=== PATIENT | male | born 1965 | race African-American/Black ===

== ENCOUNTER 2017-01-18 12:00 | Inpatient (IN) | payer OTHER ==
--- NOTE | ~2017-01-18 | A ---
[facility] Nutrition Therapy DATE: 01/19/17 Patient: REHANA MENDENHALL Physician: JANICE Address: [address] [place] [address] Room/Bed: [address], Zip: [place] [address] Admit Date: 01/18/17 Date of : [birth year] Height: 5 11 Weight: [id number] NUTRITIONAL ASSESSMENT: REASON: UNINTENTIONAL WEIGHT LOSS PATIENT ADMITTED FOR SI/HI AND A/V HALLUCINATIONS PMH: HTN, CIRRHOSIS, HEP C, ASTHMA Anthropometrics: HT: 5'11", WT: 176#, BMI: 24.5 Labs: 01/19/17- NUTRITIONAL LABS WNL Meds: ZOLOFT, LATUDA, NEURONTIN, DESYREL, KLONOPIN Assessment: PATIENT IS A 51 Y/O MALE ADMITTED FOR SI, HI, AND A/V HALLUCINATIONS. PATIENT IS CURRENTLY ON DISABILITY, LIVES ALONE, SMOKES 2-3 PPD, AND DENIES ANY CURRENT SUBSTANCE ABUSE HOWEVER TOX SCREEN WAS POSITIVE FOR BENZOS, MARIJUANA, AND OPIATES. UPON ADMIT PATIENT STATED A FAIR APPETITE WITH NO RECENT WEIGHT LOSS AND HE SLEEPS AN AVERAGE OF 2HRS/NIGHT. WEIGHT HX PER [employer] SHOWS NO SIGNIFICANT WEIGHT CHANGES X 1 YEAR. PATIENT'S BMI IS WITHIN A HEALHTY RANGE. CURRENT PSYCH MEDS MAY CAUSE AN INCREASE IN WEIGHT AND APPETITE. PATIENT DOES HAVE SOME SELF-INFLICTED SCRATCHES TO ARMS, ABDOMEN, AND NECK, WITH NO FURTHER SKIN BREAKDOWN OR GI ISSUES NOTED ATT. PATIENT IS ON A REGULAR DIET AND RECEIVES LARGE PORTION ENTREES. Dx: NO NUTRITION DX Intervention: REGULAR DIET, LARGE PORITONS, MEDS PER MD, PSYCH Monitoring, Evaluation and Goals: 1. ADEQUATE PO INTAKES >50% OF MEALS 2. PREVENT, CORRECT MICRO/MACRO NUTRIENT DEFICIENCIES MONITOR: WEIGHTS, LABS, PO/FLUID INTAKES Recommendations: 1. CONTINUE REGULAR DIET WITH LARGE PORTION ENTREES TOLERATED 2. ENCOURAGE ADEQUATE PO AND FLUID INTAKES RD TO F/U PER PROTOCOL AND PRN R/T PATIENT NOT AT NUTRITIONAL RISK ATT [facility] Nutrition Therapy DATE: 01/19/17 Patient: REHANA MENDENHALL Physician: JANICE Address: [address] [place] [address] Room/Bed: [address], Zip: [place] [address] Admit Date: 01/18/17 Date of : [birth year] Height: 5 11 Weight: [phone] Respectfully, MARIAN BURRELL, JEREMIE, LD [facility] cc: client file
--- NOTE | ~2017-01-18 | HP ---
Unit #: [id number] #: [id number] Patient: REHANA MENDENHALL [id number] [place] [address] [id number] MR#: [id number] NAME: REHANA MENDENHALL ROOM: [facility] Age: 51 Sex: M Admission Date: 01/18/2017 : 1965 Attending Physician: Musa Haskins M.D. Admitting Physician: Musa Haskins M.D. Primary Care Physician: Gillian Tejada M.D. HISTORY AND PHYSICAL HISTORY OF PRESENT ILLNESS Rehana is a 51-year-old male admitted on 01/18/[address] [place] [address] for auditory and visual hallucinations and self-injuring behaviors. PAST MEDICAL HISTORY 1. Hepatitis C which he reports has resolved. 2. Elevated blood pressure. PAST SURGICAL HISTORY 1. Inguinal hernia. 2. Tumor removal when he was a child. 3. Stomach surgery. 4. Right knee replacement. ALLERGIES Codeine. SOCIAL HISTORY Smokes 2 to 3 packs of cigarettes daily. Occasional alcohol use and occasional marijuana use. He is , grieving the of his and currently is living alone. FAMILY HISTORY Noncontributory. REVIEW OF SYSTEMS CONSTITUTIONAL: No fever or chills. HEENT: Denies any sore throat, ear pain or runny nose. CARDIOVASCULAR: Denies chest pain, irregular heart rhythm or palpitations. CHEST: Denies shortness of breath or cough. No hemoptysis. GASTROINTESTINAL: Denies nausea, vomiting, diarrhea or chronic constipation. ENDOCRINE: Denies history of increased thirst or urination. No recent significant weight loss or gain. GENITOURINARY: Denies dysuria, frequency, or hematuria. SKIN: Denies any rashes. HEMATOLOGIC: Denies history of increased bleeding or bruising. MUSCULOSKELETAL: Denies any hot, swollen joints. No generalized muscle pain. NEUROLOGIC: Denies problems with vision or speech. No frequent, severe headaches. No numbness, tingling or weakness in any extremities. Denies loss of bladder or bowel control. Unit #: [id number] #: [id number] Patient: REHANA MENDENHALL CURRENT MEDICATIONS 1. Seroquel. 2. Klonopin. 3. Lortab. PHYSICAL EXAMINATION GENERAL: Alert, oriented, no acute distress. VITAL SIGNS: Blood pressure 143/99, heart rate 100, temperature 98.1, respirations 18. HEIGHT: 5 feet 11. WEIGHT: 176 pounds. SKIN: Warm and dry without rash or lesion. HEENT: Normocephalic. TMs not viewed. Oral and nasal passages clear. Conjunctivae clear. PERRLA. EOMs intact. NECK: Supple without lymphadenopathy or thyromegaly. HEART: Regular rate and rhythm without murmur. LUNGS: Clear. ABDOMEN: Soft, nontender, without masses or hepatosplenomegaly. : Not done. EXTREMITIES: No evidence of cyanosis, clubbing or edema. Moves all without focal deficit. NEUROLOGICAL: Grossly within normal limits. Cranial Nerves: II: Visual mitchell are intact. III, IV AND : Extraocular movements are intact. Pupils are equal, round and reactive to light. V: Facial sensation is grossly normal. VII: Facial movements and expression are normal. VIII: Auditory acuity grossly intact. IX, X: Uvula is midline. Phonation is normal. XI: Patient shrugs shoulders and turns head normally. XII: Tongue protrudes in the midline. Sensory and Motor Function: Sensory and motor sensation is grossly normal. Motor: moves all extremities well. Coordination: Gait is normal. Deep Tendon Reflexes: Intact. IMPRESSION 1. Psychiatric admission. 2. Hepatitis C. 3. Elevated blood pressure. RECOMMENDATIONS PSYCHIATRIC: Per psychiatrist. MEDICAL: No contraindication to participate in facility's activities. MEDICAL PROGNOSIS Good. MEDICAL CONDITION Stable. Dictated by... Amol Olmos/douglas Unit #: [id number] #: [id number] Patient: REHANA MENDENHALL TD: 01/19/2017 16:20 JOB #: [id number] HISTORY AND PHYSICAL Page 1 of 1 X JANAK EDWARDS APRN HISTORY AND PHYSICAL
--- NOTE | ~2017-01-18 | DS ---
Unit #: [id number] #: [id number] Patient: REHANA MENDENHALL [id number] [place] [address] [id number] MR#: [id number] NAME: REHANA MENDENHALL ROOM: [facility] Age: 51 Sex: M Admission Date: 01/18/2017 : 1965 Discharge Date: 01/20/2017 Attending Physician: Musa Haskins M.D. Primary Care Physician: Gillian Tejada M.D. DISCHARGE SUMMARY REASON FOR ADMISSION Rehana is a 51-year-old man with a reported history of schizophrenia, documented history of polysubstance dependence, antisocial personality disorder. He came in the hospital reporting he needed his medications adjustment and had been noncompliant. He was admitted for stabilization . DIAGNOSTIC STUDIES Laboratory data, urine drug screen was positive for benzodiazepines, marijuana, and opiates. CBC and CMP were within normal limits. HOSPITAL COURSE Rehana was admitted and placed on suicide precautions. Seroquel was changed to Latuda 40 mg at bedtime for mood stability and Zoloft, clonazepam and other medications from his outpatient provider were controlled unchanged. The patient was somewhat irritable and demanding throughout the hospitalization, demanding special foods, favors, and attention from the staff. He demanded discharge during the weekend when I was having coverage by another practitioner, and he was felt to be able to give a reliable contract for safety and was discharged in stable condition. DISCHARGE DIAGNOSES [place] I Schizophrenia, paranoid type. Polysubstance dependence. [place] II Antisocial personality disorder. [place] III History of COPD. [place] IV [place] V INSTRUCTIONS TO PATIENT Follow up with [facility] and with his primary care physician. DISCHARGE MEDICATIONS 1. Zoloft 100 mg daily for depression 2. Latuda 40 mg at bedtime for mood stability PRIMARY CARE MEDICINES Included: 1. Lortab 10/325 every 6 hours as needed for pain 2. Klonopin 1 mg twice daily for anxiety 3. Trazodone 50 mg at bedtime for insomnia 4. Neurontin 300 mg twice daily and 600 mg at bedtime for chronic pain 5. Procardia XL 90 mg daily for hypertension Unit #: [id number] #: [id number] Patient: REHANA MENDENHALL 6. Symbicort inhaler twice daily for asthma 7. Proventil inhaler two puffs every four hours as needed for shortness of air CONDITION AT DISCHARGE Improved. PROGNOSIS Fair. DIET AND ACTIVITY Per primary care doctor. Dictated by... Musa Haskins M.D. FRANCISCO/ignacio TD: 01/23/2017 11:12 JOB #: [id number] DISCHARGE SUMMARY Page 1 of 1 X Musa Haskins MD X DISCHARGE SUMMARY
--- NOTE | ~2017-01-18 | PA ---
Unit #: [id number] #: [id number] Patient: REHANA MORTON [id number] [facility] [address] [place] [address] [id number] MR#: [id number] NAME: REHANA MORTON ROOM: [facility] Age: 51 Sex: M Admission Date: 01/18/2017 : 1965 Date of Assessment: 01/19/2017 Attending Physician: Musa Haskins M.D. Admitting Physician: Musa Haskins M.D. Primary Care Physician: Gillian Tejada M.D. PSYCHIATRIC ASSESSMENT DATE OF SERVICE 01/19/2017 INFORMANTS Patient reliable; OLOP, reliable. CHIEF COMPLAINT "I'm hearing voices." HISTORY OF PRESENT ILLNESS Mr. Morton is a 51-year-old man with a history of bipolar disorder and substance abuse. The patient reports he has had increasingly mood lability, irritability, and thoughts to cut on himself. He had suicidal ideation with a plan to cut his throat or run in front of a bus and was admitted for stabilization. PAST PSYCHIATRIC HISTORY Multiple admissions to this facility, the last in 08/2015. He has diagnosis varying from antisocial personality disorder, polysubstance abuse, and schizophrenia. He has been noncompliant with outpatient medications. FAMILY PSYCHIATRIC HISTORY The patient's sister suffered from schizophrenia and there is a family history of chemical dependence. SOCIAL HISTORY The patient is episodically homeless and conflict with his family is common. He is a high-school graduate, on long-term disability and has been incarcerated for killing a female cushion gum applicator and a man, who is cheating with her. PAST MEDICAL HISTORY Significant for hepatitis C, hypertension, and chronic pain. MEDICATIONS Please see MAR. ALLERGIES Codeine. SUBSTANCE USE HISTORY The patient has a history of using cannabis, cocaine, opiates, and Unit #: [id number] #: [id number] Patient: REHANA MORTON benzodiazepines, as well as alcohol. MENTAL STATUS EXAMINATION Rehana presented as a mildly disheveled man, who appeared his stated age. He was irritable and cooperative with the examination. Speech was spontaneous and easily understood with mild pressure of speech. Insight and judgment were fair. Fund of knowledge and abstraction were ongoing. Mood was labile and he had no evidence of psychosis, but did report some paranoia. He also reported suicidal ideation. ASSETS AND LIABILITIES The patient is generally in good health and knows local resources. Liabilities include history of drug use, noncompliance. ADMITTING DIAGNOSES AXIS I: Schizophrenia, paranoid type; polysubstance dependence. AXIS II: Antisocial personality disorder. AXIS III: Hepatitis C, cirrhosis of the liver, chronic pain, hypertension. AXIS IV: AXIS V: PSYCHIATRIC PLAN Rehana was admitted and placed on suicide precautions. After discussion of risks and benefits of various treatments, we will restart clonazepam 1 mg b.i.d., trazodone 50 mg at bedtime for sleep, Neurontin 300 mg b.i.d. and 600 mg at bedtime for mood stability, Zoloft 100 mg daily for depression, Latuda 40 mg at bedtime for mood stability, Procardia XL 90 mg daily for hypertension, and the patient's inhalers for COPD. He will enroll in psychotherapy groups and activities and physical examination and laboratory studies will be ordered and reviewed. TREATMENT GOALS Resolution of SI, improvement in insight, and improvement in coping skills. DISCHARGE PLAN Follow up with [facility]. ESTIMATED LENGTH OF STAY 5 days. Dictated by... Burton Garcia/teresa TD: 01/22/2017 11:43 JOB #: [id number] Unit #: [id number] #: [id number] Patient: REHANA MORTON PSYCHIATRIC ASSESSMENT Page 1 of 1 X Musa Haskins MD X PSYCHIATRIC ASSESSMENT
[~2017-01-18 12:00] MED LIST: ALPRAZOLAM; ASPIRIN325 M1 PO; BACTRIM DS TABL1 TA1 PO; BP MED; CELEXA PO; CHLORTHALIDONE25 MG PO; COGENTIN PO; CONGENTIN; DRONABINOL10 MG PO; FLEXERIL10 MG PO; HALDOL PO; HYDROCODONE-APA1 T51 PO; INVEGA6 MG PO; KETOPROFEN PO; LISINOPRIL10 MG PO; LORTAB 10-5001 EACH PO; LORTAB 10/500 T1 TAB PO; LORTAB 101 TAB 10/5; LORTAB 101 TAB 10/5 PO; LORTAB 5/500 TA1 TA1 PO; NORVASC PO; ORUDIS75 M1 DOB; ORUDIS75 M1 PO; OUT OF ALL MEDS; PAXIL PO; PEN-VEE K PO; PHENERGAN PO; PRILOSEC PO; PROTONIX PO; RIBASPHERE200 M1; SEROQUEL PO; SEROQUEL XR200 MG PO; TESSALON200 MG PO; TYLENOL #3 PO; VICODIN 5/1 TAB 5/50 PO; XANAX2 MG PO; ZESTRIL5 MG PO; ZITHROMAX PO; ZITHROMAX1 G/PKT PO; ZOFRAN PO; [UNRECOGNIZED DRUG - OTHER]; [UNRECOGNIZED DRUG - OTHER]
[2017-01-19 11:06] LABS: AMPHETAMINE NEG (NEG); BARBITURATES NEG (NEG); BENZODIAZEPINES POS (NEG); COCAINE NEG (NEG); MARIJUANA POS (NEG); OPIATES POS (NEG); TRICYCLIC ANTIDEPRESSANTS NEG (NEG); U METHADONE NEG (NEG)
[2017-01-19 12:33] LABS: ALBUMIN SERUM 4.1 g/dL (3.5-5.0); BILIRUBIN,TOTAL 0.4 mg/dL (0.2-2.0); BUN/CREATININE RATIO 9.16; CALCIUM SERUM 9.2 mg/dL (8.4-10.2); CREATININE SERUM 1.2 mg/dL (0.6-1.4); GLOM FILT RATE Estimated 79.6 mL/min (>60); POTASSIUM 3.9 mmol/L (3.5-5.1); PROTEIN TOTAL SERUM 7.3 g/dL (6.0-8.3)
[2017-01-19 12:39] LABS: BASOPHIL% 0.8 % (0-2.5); EOSINOPHIL# 0.1 X10e3 (0-0.7); EOSINOPHIL% 2.3 % (0.0-7.0); HEMOGLOBIN 15.2 gm/dL (13.0-16.0); LYMPHOCYTE# 1.6 X10e3 (1.0-3.5); LYMPHOCYTE% 37.2 % (17.0-45.0); MEAN CELL VOLUME 94.6 FL (83-96); MEAN CORPUSCULAR HEMOGLOBIN 31.3 PG (28-34); MEAN CORPUSCULAR HGB CONC 33.1 g/dL (30-36); MEAN PLATELET VOLUME 9.6 FL (6.5-11.5); MONOCYTE# 0.5 X10e3 (0-1.0); MONOCYTE% 11.2 % (3.0-12.0); NEUTROPHIL% 48.5 % (40-75); PLATELET COUNT 212 X10e3 (140-420); RED BLOOD COUNT 4.87 X10e (3.90-5.60); RED CELL DISTRIBUTION WIDTH 13.7 % (11.0-15.5); WHITE BLOOD COUNT 4.2 X10e3 (4.0-10.5)
[2017-01-19 12:42] LABS: DIFF IND NO
== END 2017-01-20 10:15 | disposition home or self-care (01) | DRG 885 ==
LOC: P2L 15:06 → P1S 15:06 → P2L 01-19 16:06
PROVIDERS: Psychiatry & Neurology Psychiatry
DX: F20.0 Paranoid schizophrenia (principal); K74.60 Unspecified cirrhosis of liver; Z91.14 Patient's other noncompliance with medication regimen; R45.851 Suicidal ideations; F19.20 Other psychoactive substance dependence, uncomplicated; F60.2 Antisocial personality disorder; B19.20 Unspecified viral hepatitis C without hepatic coma; G89.29 Other chronic pain; I10 Essential (primary) hypertension; Z88.5 Allergy status to narcotic agent; Z96.651 Presence of right artificial knee joint; F17.210 Nicotine dependence, cigarettes, uncomplicated; J44.9 Chronic obstructive pulmonary disease, unspecified; Z59.0 Homelessness
CPT/HCPCS: 80053; 80307; 85025